=== PATIENT | male | born 1965 | race Caucasian/White ===

== ENCOUNTER → 2020-08-12 | Outpatient (CLI) | payer BC, MEDICARE ==
--- NOTE | 2020-08-12 09:36 | US ---
EXAMINATION TYPE: US prostate transrectal DATE OF EXAM: 08/12/2020 COMPARISON: NONE CLINICAL HISTORY: N40.0 Benign prostatic hyperplasia. Benign prostatic hyperplasia This examination was performed using the transrectal probe. EXAM MEASUREMENTS: Gland Size: 5.1 x 3.0 x 5.4 cm Volume:43.2 Predicted PSA: 5.1 Actual PSA (if available):Not available Calcifications visualized mid gland. IMPRESSION: No suspicious lesions identified. Predicted PSA = volume x 0.12 ng/ml Calculated Volume = 0.5236 x L x W x H
== END | disposition home or self-care (01) ==
LOC: RADUSWWP 08:28
PROVIDERS: ATTEND Family Medicine
DX: N40.0 Benign prostatic hyperplasia without lower urinary tract symptoms (principal)
CPT/HCPCS: 76872

== ENCOUNTER 2024-06-23 14:47 | Emergency (ER) | payer MEDICARE ==
--- NOTE | 2024-06-23 15:08 | ED ---
General Adult HPI - General Source: patient, family, RN notes reviewed Mode of arrival: ambulatory Limitations: no limitations <Curtis Sanabria - Last Filed: 06/23/24 15:55> <Andrew Payan - Last Filed: 06/23/24 17:48> - General Chief complaint: Fall Stated complaint: fall L rib pain Time Seen by Provider: 06/23/24 14:54 - History of Present Illness Initial comments: Patient is a 58-year-old male present to the emergency department with concern for fall. Patient has Parkinson's and does fall frequently. Patient had some discomfort left ribs from a recent fall. No dyspnea. Patient states discomfort does increase a little bit with deep breath. Patient states he did not want to be here but his family made him come. No head injury or loss of consciousness. No syncope. (Curtis Sanabria) - Related Data Allergies Allergy/AdvReac Type Severity Reaction Status Date / Time No Known Allergies Allergy Verified 06/23/24 16:51 Review of Systems ROS Other: All systems not noted in ROS Statement are negative. Constitutional: Denies: fever Eyes: Denies: eye pain ENT: Denies: ear pain Respiratory: Denies: cough, dyspnea Endocrine: Denies: fatigue Gastrointestinal: Denies: abdominal pain Musculoskeletal: Reports: as per HPI <Curtis Sanabria - Last Filed: 06/23/24 15:55> ROS Other: All systems not noted in ROS Statement are negative. <Andrew Payan - Last Filed: 06/23/24 17:48> ROS Statement: Those systems with pertinent positive or pertinent negative responses have been documented in the HPI. Past Medical History Additional Past Medical History / Comment(s): parkisons/dementia History of Any Multi-Drug Resistant Organisms: None Reported Past Surgical History: Orthopedic Surgery Additional Past Surgical History / Comment(s): parkinsons pack in chest Past Psychological History: Depression Smoking Status: Never smoker Past Alcohol Use History: None Reported Past Drug Use History: None Reported <Curtis Sanabria - Last Filed: 06/23/24 15:55> General Exam Limitations: no limitations General appearance: alert, in no apparent distress Head exam: Present: normocephalic Eye exam: Present: normal appearance Neck exam: Present: normal inspection. Absent: tenderness Respiratory exam: Present: normal lung sounds bilaterally, chest wall tenderness (Minimal tenderness left anterior lower rib cage) Cardiovascular Exam: Present: regular rate, normal rhythm, normal heart sounds GI/Abdominal exam: Present: soft. Absent: distended, tenderness, guarding, rebound, rigid, pulsatile mass Extremities exam: Present: normal inspection, full ROM. Absent: tenderness Back exam: Present: normal inspection. Absent: tenderness, vertebral tenderness Neurological exam: Present: alert Psychiatric exam: Present: normal affect, normal mood Skin exam: Present: normal color <Curtis Sanabria - Last Filed: 06/23/24 15:55> Course Vital Signs 06/23/24 15:00 Temperature 98.3 F Pulse Rate 76 Respiratory 20 Rate Blood Pressure 153/90 O2 Sat by Pulse 96 Oximetry Medical Decision Making <Curtis Sanabria - Last Filed: 06/23/24 15:55> <Andrew Payan - Last Filed: 06/23/24 17:48> - Medical Decision Making Was pt. sent in by a medical professional or institution (, PA, MEDICAL TECHNICIAN ASSISTANT, urgent care, hospital, or intermediate...) When possible be specific @ -No Did you speak to anyone other than the patient for history (EMS, parent, family, police, friend...)? What history was obtained from this source @ -Family is present helps right history of patient fall with rib injury Did you review nursing and triage notes (agree or disagree)? Why? @ -I reviewed and agree with nursing and triage notes Were old charts reviewed (outside hosp., previous admission, EMS record, old EKG, old radiological studies, urgent care reports/EKG's, intermediate records)? Report findings @ -No old charts were reviewed Differential Diagnosis (chest pain, altered mental status, abdominal pain women, abdominal pain men, vaginal bleeding, weakness, fever, dyspnea, syncope, headache, dizziness, GI bleed, back pain, seizure, CVA, palpatations, mental health, musculoskeletal)? @ -Differential Musculoskeletal Muscular strain, contusion, ligament sprain, fracture, arthritis, septic arthritis, bursitis, cellulitis, muscle spasm, nerve compression, DVT, arterial occlusion, herpes zoster, electrolyte abnormality, tumor.... This is not meant to be in all inclusive list EKG interpreted by me (3pts min.). @ -As above X-rays interpreted by me (1pt min.). @ -Left rib and chest x-ray do not reveal acute traumatic injury CT interpreted by me (1pt min.). @ -None done U/S interpreted by me (1pt. min.). @ -None done What testing was considered but not performed or refused? (CT, X-rays, U/S, labs)? Why? @ -None What meds were considered but not given or refused? Why? @ -None Did you discuss the management of the patient with other professionals (professionals i.e. Dr., PA, MEDICAL TECHNICIAN ASSISTANT, lab, RT, psych nurse, social work lecturer, manager public, teacher, adult probation officer, counseling case manager)? Give summary @ -Case endorsed to Dr. Payan at shift change Was smoking cessation discussed for >3mins.? @ -No Was critical care preformed (if so, how long)? @ -No Were there social determinants of health that impacted care today? How? (Homelessness, low income, unemployed, alcoholism, drug addiction, transportation, low edu. Level, literacy, decrease access to med. care, penitentiary, rehab)? @ -No Was there de-escalation of care discussed even if they declined (Discuss DNR or withdrawal of care, Hospice)? DNR status @ -No What co-morbidities impacted this encounter? (DM, HTN, Smoking, COPD, CAD, Cancer, CVA, ARF, Chemo, Hep., AIDS, mental health diagnosis, sleep apnea, morbid obesity)? @ -History of Parkinson's Was patient admitted / discharged? Hospital course, mention meds given and route, prescriptions, significant lab abnormalities, going to OR and other pertinent info. @ -Patient presents with history of fall from Parkinson's with left admit rib injury. Imaging unremarkable. On reevaluation family is concerned regarding patient's ability to take care of himself or other help at home. Patient lives in a quad level and family has severe rheumatoid disease. Patient has frequent falls getting worse. Reportedly patient's neurologist and primary care physician would like him to be placed outside of the home. Undiagnosed new problem with uncertain prognosis? @ -No Drug Therapy requiring intensive monitoring for toxicity (Heparin, Nitro, Insulin, Cardizem)? @ -No Were any procedures done? @ -No Diagnosis/symptom? @ -Parkinson's, fall, rib injury Acute, or Chronic, or Acute on Chronic? @ -Chronic, acute on chronic, acute Uncomplicated (without systemic symptoms) or Complicated (systemic symptoms)? @ -Default Side effects of treatment? @ -No Exacerbation, Progression, or Severe Exacerbation? @ -No Poses a threat to life or bodily function? How? (Chest pain, [place], [place], pneumonia, PE, COPD, DKA, ARF, appy, cholecystitis, CVA, Diverticulitis, Homicidal, Suicidal, threat to staff... and all critical care pts) @ -No (Curtis Sanabria) Arrangements have been made for this patient to go to long-term care. (Andrew Payan) Disposition <Curtis Sanabria - Last Filed: 06/23/24 15:55> Is patient prescribed a controlled substance at d/c from ED?: No Time of Disposition: 17:48 <Andrew Payan - Last Filed: 06/23/24 17:48> Clinical Impression: Fall Disposition: HOME SELF-CARE Condition: Fair Instructions (If sedation given, give patient instructions): Fall Prevention for Older Adults (ED) Referrals: Arvin Lucia MD [Primary Care Provider] - 1-2 days
[2024-06-23 15:18] VITALS: RESP 20; TEMP 98.3
--- NOTE | 2024-06-23 15:42 | XR ---
EXAMINATION TYPE: XR ribs LT w pa chest xray DATE OF EXAM: 06/23/2024 3:33 PM INDICATION: Patient age:Male; 58 years old; Reason for study: fall; PHH. pain COMPARISON: None TECHNIQUE: Frontal and oblique views of the left ribs with additional AP chest radiograph. FINDINGS: The ribs have a normal appearance. No evidence of fracture. Overall, the lungs are clear. The cardiac silhouette is normal in size. The remaining osseous structures are intact. There is a p ower pack overlying the left mid chest with leads extending superiorly into the neck and inferiorly o yolanda the abdomen. No additional power pack overlies the left abdomen. IMPRESSION: No acute osseous pathology. [facility], , 06/23/2024 3:40 PM
[2024-06-23 18:03] VITALS: BP 148/90; PULSE 90
== END 2024-06-23 18:04 | disposition home or self-care (01) ==
LOC: EC 14:47
DX: R07.81 Pleurodynia (principal); G20.A1 Parkinson's disease without dyskinesia, without mention of fluctuations; W19.XXXA Unspecified fall, initial encounter
CPT/HCPCS: 99284

== ENCOUNTER 2024-08-08 21:38 | Inpatient (IN) | payer MEDICARE ==
[2024-08-08] MEDS ORDERED: LORazepam 2 MG/ML INJ IV PRN (21:58)
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
[2024-08-08 22:12] LABS: Glucose,Whole Blood 96 mg/dL (70-110)
[2024-08-08 22:27] LABS: Basophils # (A) 0.05 10*3/uL (0.00-0.10); Basophils % (A) 0.5 %; Eosinophils # (A) 0.06 10*3/uL (0.04-0.35); Eosinophils % (A) 0.6 %; HCT 43.1 % (39.6-50.0); HGB 14.8 g/dL (13.0-17.0); Lymphocytes # (A) 1.05 10*3/uL (0.90-5.00); Lymphocytes % (A) 10.6 %; MCH 29.5 pg (27.0-32.0); MCHC 34.3 g/dL (32.0-37.0); Mean Platelet Volume 9.5 fL (9.5-12.2); Monocytes # (A) 0.81 10*3/uL (0.20-1.00); Monocytes % (A) 8.2 %; Neutrophils # (A) 7.92 10*3/uL (1.80-7.70); Neutrophils % (A) 79.8 %; Platelet Count 203 10*3/uL (140-440); RBC 5.01 10*6/uL (4.40-5.60); RDW 13.3 % (11.5-14.5); WBC 9.92 10*3/uL (4.50-10.00)
[2024-08-08 22:44] LABS: ALT 8 U/L (4-49); AST 27 U/L (17-59); Acetaminophen <10.0 ug/mL; African American GFR (CKD) >90 (>60 ml/min/1.73 sqM); Albumin 4.2 g/dL (3.5-5.0); Alcohol <10 mg/dL; Alkaline Phosphatase 81 U/L (38-126); Anion Gap 10 mmol/L; Blood Urea Nitrogen 23 mg/dL (9-20); Calcium 9.3 mg/dL (8.4-10.2); Carbon Dioxide 20 mmol/L (22-30); Chloride 110 mmol/L (98-107); Glucose 95 mg/dL (74-99); Non-African American GFR(CKD) >90 (>60 ml/min/1.73 sqM); Potassium 3.9 mmol/L (3.5-5.1); Salicylate <1.0 mg/dL; Sodium 140 mmol/L (137-145); Total Bilirubin 1.2 mg/dL (0.2-1.3); Total Protein 6.9 g/dL (6.3-8.2)
[2024-08-08 22:48] LABS: Partial Thromboplastin Time 22.6 sec (22.0-30.0)
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
[2024-08-09] MEDS: IBUPROFEN 400 MG TAB PO STA (00:54)
[2024-08-09] MEDS: CARBIDOPA-LEVODOPA 25-100 MG 1 EACH TAB PO SCH (03:44)
[2024-08-09] MEDS: QUEtiapine 100 MG TAB PO STA (03:44)
[2024-08-09 04:56] LABS: Influenza A Not Detected (Not Detectd); Influenza B Not Detected (Not Detectd); RSV Not Detected (Not Detectd)
[2024-08-09] MEDS: RASAGILINE 1MG TABLET PO SCH (10:06)
[2024-08-09] MEDS: LOSARTAN 50 MG TAB PO SCH (14:41)
[2024-08-09 17:31] LABS: Glucose,Whole Blood 93 mg/dL (70-110)
[2024-08-09 17:36] LABS: Appearance,Urine Clear (Clear); Bilirubin,Urine Negative (Negative); Blood,Urine Small (Negative); Color,Urine Yellow; Glucose,Urine (UA) Negative (Negative); Ketones,Urine Negative (Negative); Leukocyte Esterase,Urine Negative (Negative); Mucus,Urine Occasional /hpf; Nitrite,Urine Negative (Negative); PH, Urine 6.5 (5.0-8.0); Protein,Urine Negative (Negative); RBC,Urine 11 /hpf (0-5); Specific Gravity,Urine 1.018 (1.001-1.035); Squamous Epithelial Cell,Urine <1 /hpf (0-4); WBC,Urine 2 /hpf (0-5)
--- NOTE | 2024-08-09 18:57 | P.CN ---
Psychiatric Consult - . Consult date: 08/09/24 Consult:: 08/09/24 18:35 Patient was seen, chart reviewed, and nursing staff consulted. The patient suffers from dementia and parkinsons and recently agitated psychosis. The patient had become so agitated that he was striking out in fear. He received 100mg of Seroquel and slept almost till noon and is still a little sleepy but otherwise doing well He knows that he isin a hospital in [facility], he thought the president was Biden, he was calm and even showed a sense of humor, no evidence of delusional thinking or agression. When asked to spell World he got the first two letterrs, He knew his birthday and age. 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 Suggest make the Seroquel regular at 100mg as long as he is taking parkinson dopamine medication.
[2024-08-09] MEDS: LORazepam 2 MG/ML INJ IV STA (22:19)
[2024-08-09] MEDS: LORazepam 2 MG/ML INJ IM STA (22:19)
[2024-08-09] MEDS: LORazepam 2 MG/ML INJ IM PRN (22:33)
[2024-08-09] MEDS: OLANZapine 10 MG VIAL IM STA (23:01)
[2024-08-10] MEDS: QUEtiapine 100 MG TAB PO STA (01:09)
[2024-08-10] MEDS: SERTRALINE 50 MG TAB PO STA (01:09)
[2024-08-10] MEDS ORDERED: NALOXONE 0.4 MG/ML 1 ML VIAL IV PRN (01:53)
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
[2024-08-10] MEDS: QUEtiapine 100 MG TAB PO SCH (04:47)
[2024-08-10] MEDS ORDERED: LORazepam 1 MG/0.5 ML VIAL IM PRN ×2 (05:25→17:31)
[2024-08-10] MEDS ORDERED: LORazepam 1 MG/0.5 ML VIAL IV PRN (05:26)
[2024-08-10] MEDS: SERTRALINE 100 MG TAB PO SCH (11:33)
[2024-08-10] MEDS: ENOXAPARIN 40 MG/0.4 ML SYRINGE SQ SCH (11:34)
[2024-08-10] MEDS: FAMOTIDINE 20 MG TAB PO SCH (11:34)
[2024-08-10] MEDS: LOSARTAN 50 MG TAB PO SCH (11:34)
[2024-08-10] MEDS: LORazepam 1 MG/0.5 ML VIAL IV PRN (18:32)
[2024-08-10] MEDS ORDERED: QUEtiapine 100 MG TAB PO SCH (21:00)
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
[2024-08-11 16:47] VITALS: BMI 31.1
[2024-08-11] MEDS: ACETAMINOPHEN TAB 325 MG TAB PO PRN (21:08)
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
--- NOTE | 2024-08-12 14:11 | P.PN ---
Progress Note - Text Progress Note Date: 08/12/24 IDENTIFYING DATA: 58-year-old male with history of Parkinson's dementia REASON FOR CONSULT: Management hallucinations/agitation INTERVAL HISTORY: Patient seen and evaluated. Sitter present at bedside. He was A&Ox1-2 to self and month, not year or place. Patient was talking nonsensical, did not express delusions of arresting someone and putting them in custody last night despite patient later on saying he is retired. Patient also reported auditory hallucinations at time however did not appear internally preoccupied at this moment. Patient denied any SI/HI. He denied any sleep difficulties. Spoke to patient's and daughter in conference room who was able to filll typewriters functional tester in on patient's early onset of Parkinson's disease that was diagnosed back in 1999 and he sees a neurologist regularly since then. Family states that patient developed dementia roughly 3 years ago however for the past 6-8 months it has progressed to delusions. states she is unable to keep patient safe at home given his aggression and frequent falls. She is planning on obtaining guardianship. MENTAL STATUS EXAM: General Appearance: Patient appears to be stated age. Patient appears to have questionable hygiene and grooming wearing hospital gown with poor eye contact. Behavior: Patient is calmly lying in bed without any agitated behavior. Speech: Speech is nonsensical, normal rate and rhythm Mood/Affect: Mood is "okay" and affect is constricted Suicidality/Homicidality: Patient denies any suicidal or homicidal ideations Perceptions: Patient does report auditory hallucinations Though content/process: Thought content did reveal delusions, illogical thoughts Judgment and insight: Poor IMPRESSIONS: Parkinson's disease Major neurocognitive disorder due to Parkinson's disease PLAN: -At this time patient DOES NOT meet criteria for inpatient psychiatric admission. -Patient DOES NOT have decision making capacity at this time and is unable to reason through and communicate/appreciate the risks, benefits and alternatives to treatment. states she is working on obtaining guardianship for patient -Would recommend the following medication changes/additions: Increase Seroquel to 150 mg at bedtime for psychosis. Sinemet can contribute to psychosis and discussed with family to speak to patient's neurologist regarding changing this medication to an alternative med that is least likely to worsen psychosis. Patient is unable to to return home and would likely benefit from a memory care facility -Will continue to follow along -Please contact with any questions.
[2024-08-12] MEDS: QUEtiapine 100 MG TAB PO SCH (20:51)
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
[2024-08-14 08:35] LABS: Basophils # (A) 0.05 X 10*3/uL (0.00-0.10); Basophils % (A) 0.6 %; Eosinophils # (A) 0.31 X 10*3/uL (0.04-0.35); Eosinophils % (A) 3.9 %; HCT 45.4 % (39.6-50.0); HGB 14.8 g/dL (13.0-17.0); Lymphocytes # (A) 1.77 X 10*3/uL (0.90-5.00); Lymphocytes % (A) 22.2 %; MCH 28.6 pg (27.0-32.0); MCHC 32.6 g/dL (32.0-37.0); MCV 87.8 FL (80.0-97.0); Mean Platelet Volume 10.1 FL (9.5-12.2); Monocytes # (A) 0.65 X 10*3/uL (0.20-1.00); Monocytes % (A) 8.2 %; NRBC Per 100 WBC 0 X 10*3/uL (0.00-0.01); Neutrophils # (A) 5.18 X 10*3/uL (1.80-7.70); Platelet Count 208 X 10*3/uL (140-440); RBC 5.17 X 10*6/uL (4.40-5.60); RDW 13.2 % (11.5-14.5); WBC 7.97 X 10*3/uL (4.50-10.00)
[2024-08-14 09:11] LABS: BUN/Creat Ratio 23.56 Ratio (12.00-20.00); Blood Urea Nitrogen 21.2 mg/dL (9.0-27.0); Calcium 8.8 mg/dL (8.7-10.3); Carbon Dioxide 21.4 mmol/L (21.6-31.8); Chloride 111 mmol/L (96-109); Glucose 87 mg/dL (70-110); Potassium 3.9 mmol/L (3.5-5.5); Sodium 143 mmol/L (135-145)
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
--- NOTE | 2024-08-14 14:20 | P.PN ---
Progress Note - Text Progress Note Date: 08/14/24 IDENTIFYING DATA: Patient is a 66-year-old male with Parkinson's dementia REASON FOR CONSULT: Management of hallucinations/agitation INTERVAL HISTORY: Patient seen and evaluated. Patient was seen responding to internal stimuli, grabbing about the air and stated that he knocked his cup on the floor however there was no cup there. Patient did have insight into his hallucinations, stating "I am seeing things that are not there". He denied any worsening in his hallucinations, also denying any suicidal homicidal ideations. He was A&Ox1 to self only. Guardianship scheduled for Sunday. MENTAL STATUS EXAM: General Appearance: Patient appears to be stated age. Patient appears to have f air hygiene and grooming wearing hospital gown with poor eye contact. Behavior: Patient is calmly lying in bed without any agitated behavior. Speech: Speech is low volume, normal rate Mood/Affect: Mood is "okay" affect is constricted Suicidality/Homicidality: Patient denies any suicidal homicidal ideations Perceptions: There is evidence of visual hallucinations and patient was seen responding to internal stimuli during encounter Though content/process: There were no overt delusional thoughts expressed today Judgment and insight: Poor IMPRESSIONS: Parkinson's disease Major neurocognitive disorder due to Parkinson's disease PLAN: -At this time patient DOES NOT meet criteria for inpatient psychiatric admission. -Patient DOES NOT have decision making capacity at this time and is unable to reason through and communicate/appreciate the risks, benefits and alternatives to treatment. Daughter is working on guardianship with hearing scheduled for Sunday. -Would recommend the following medication changes/additions: Increase Seroquel to 200 mg at bedtime for psychosis -Communicated plan to patient's nurse -Will continue to follow along -Please contact with any questions.
[2024-08-14] MEDS: QUEtiapine 200 MG TAB PO SCH (21:05)
[2024-08-15] MEDS: LORazepam 1 MG/0.5 ML VIAL IV PRN (02:05)
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
[2024-08-15 13:56] VITALS: BP 123/75; PULSE 78; RESP 18; TEMP 98.1
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
== END 2024-08-15 16:40 | DRG 57 ==
LOC: EC 21:38 → 5NMEDONC 08-10 01:55 → OBSVTOIN 08-10 01:56 → 5NMEDONC 08-10 02:06
PROVIDERS: ADMIT Internal Medicine; ATTEND Internal Medicine
DX: G20.A1 Parkinson's disease without dyskinesia, without mention of fluctuations (principal); F02.811 Dementia in other diseases classified elsewhere, unspecified severity, with agitation; I10 Essential (primary) hypertension; F32.A Depression, unspecified; F02.82 Dementia in other diseases classified elsewhere, unspecified severity, with psychotic disturbance; Z78.1 Physical restraint status; F41.9 Anxiety disorder, unspecified; M19.90 Unspecified osteoarthritis, unspecified site; R29.6 Repeated falls; Z79.899 Other long term (current) drug therapy
CPT/HCPCS: 36415; 70450; 80048; 80053; 80143; 80179; 80320; 81001; 84484; 85025; 85610; 85730; 87635; 87636; 93005; 96372; 99285